=== PATIENT | female | born 1960 | race Caucasian/White ===

== ENCOUNTER → 2018-07-09 13:40 | Outpatient (CLI) | payer MEDICAID, SELFPAY ==
--- NOTE | 2018-07-09 13:47 | US_ITS ---
US abdomen limited History:Soft tissue mass right upper quadrant tender Ordering Physician:Cleve Sawyer MD Patient Age: 58 years Comparison:None Findings: Ultrasound performed of the right upper quadrant over the palpable abnormality. In this region there is an oval 1 x 1.4 cm area of isoechogenicity which is well-circumscribed consistent with a lipoma. No cysts or suspicious solid lesions evident. IMPRESSION: Palpable abnormality in right upper quadrant appears to represent a small lipoma
== END ==
PROVIDERS: PCP Internal Medicine Adolescent Medicine; Visit Provider Internal Medicine Adolescent Medicine
DX: R19.01 Right upper quadrant abdominal swelling, mass and lump (principal)
CPT/HCPCS: 76705

== ENCOUNTER → 2018-07-21 08:20 | Outpatient (CLI) | payer MEDICAID, SELFPAY ==
--- NOTE | 2018-07-21 08:23 | MM_ITS ---
MM Dig screening mamm BI w/CAD ORDERING PHYSICIAN : Cleve Sawyer MD PATIENT AGE: 58 years GENDER: Female COMPARISON: July 2017, 2015, 2014 and June 2014 . May 2012 INDICATION: ITS.REASON: SCREENING 58-year-old. Routine screening. Patient Takes estrogen. No new complaints. Noncontributory family history. TECHNIQUE: Standard CC and MLO images were obtained. R2 CAD reviewed. Additional nipple profile MLO views bilaterally included FINDINGS: Lower density breast with generalized fatty replacement.. Stable mild asymmetry with no suspicious/ dominant mass. No suspicious calcifications. RIGHT BREAST. Stable appearance. Follow-up in one year adequate :Mild asymmetric area of fibroglandular density at the right breast again noted-unchanged. The 2 small nodular densities at the right breast appears stable. Stable dense spherical calcified areas right breast unchanged.. LEFT BREAST:No new findings. Follow-up in one year. Stable small benign 5 mm nodular density at the left breast no significant change since since 2013. This density dates back to at least 2011 but can be followed IMPRESSION: . Stable mammogram with no no findings of significant concern. Stable mild asymmetry. Stable nodular densities bilaterally. Follow-up in one year recommended BI-RADS Category: 2 Benign Finding(s) RECOMMENDED FOLLOW-UP: 1YR 1 YEAR FOLLOW-UP (A letter has been sent to the patient regarding results of the study.)
--- NOTE | 2018-07-21 08:23 | XR_ITS ---
XR DEXA axial skeleton HISTORY: ITS.REASON: ASYMPTOMATIC MENOPAUSAL ORDERING PHYSICIAN: Cleve Sawyer MD PATIENT AGE: 58 years COMPARISON: 07/19/2016 FINDINGS: The BMD measured at the left femoral neck is 1.143 g/cm squared with a T score of 0.8. This is considered Normal according to the World Health Organization criteria. Fracture risk is Low. Treatment is advised. L1 L4 density has a T score of 2.2. Bone density is not significant changed compared to the previous exam IMPRESSION: Normal bone density with low fracture risk. Recommend follow-up exam July 2020
== END ==
PROVIDERS: Family Provider Internal Medicine Adolescent Medicine; PCP Internal Medicine Adolescent Medicine; Visit Provider Internal Medicine Adolescent Medicine
DX: Z12.31 Encounter for screening mammogram for malignant neoplasm of breast (principal); Z78.0 Asymptomatic menopausal state
CPT/HCPCS: 77067; 77080

== ENCOUNTER → 2019-08-15 10:49 | Outpatient (CLI) | payer OTHER, SELFPAY ==
--- NOTE | 2019-08-15 11:36 | XR_ITS ---
PROCEDURE: XR SHOULDER RT MIN 2V Patient Age:59Y CLINICAL INDICATION: IMPINGEMENT SYNDROME OF RIGHT SHOULDER Right shoulder pain after moving furniture COMPARISON: No exams were available for comparison FINDINGS: The glenohumeral joint intact. No fracture no dislocation. There stippled calcification overlying above the greater tuberosity in the region of the critical zone rotator cuff-just inferior to the tip of the acromion. This would appear to reflect calcific tendinitis features. AC joint intact. Minor hypertrophic changes inferiorly at distal clavicle The apices of the lungs is clear bilaterally. Incidental note is made of just roughly 2 cm length cervical rib on right which is slightly more evident than cervical rib on left IMPRESSION: Calcific tendinitis calcifications noted-just superior to the greater tuberosity Dictated by: Michele Del Real MD 08/15/2019 14:30 Electronically signed by Michele Del Real MD in [place] 08/15/2019 14:30
== END ==
PROVIDERS: PCP Internal Medicine Adolescent Medicine; Referring Provider Nurse Practitioner Family; Visit Provider Internal Medicine Adolescent Medicine
DX: M75.41 Impingement syndrome of right shoulder (principal)
CPT/HCPCS: 73030

== ENCOUNTER → 2019-08-28 07:46 | Outpatient (CLI) | payer OTHER, SELFPAY ==
--- NOTE | 2019-08-28 07:48 | MM_ITS ---
PROCEDURE: MM DIG SCREENING MAMM BI W/CAD CLINICAL INDICATION: SCREENING There is no personal or family history of breast cancer. COMPARISON: [facility] DIG MAMM-SCREEN DIAMOND from 07/19/2016 [facility] DIG MAMM-SCREEN DIAMOND W/CAD from 07/22/2017 [facility] MM Dig screening mamm BI w/CAD from 07/21/2018 TECHNIQUE: Standard CC and MLO images were obtained. R2 CAD reviewed. FINDINGS: The breasts are composed primarily of fat with minimal fibroglandular densities in the central portions bilaterally. There is stable benign-appearing macrocalcifications right breast. There are 2 stable small benign-appearing nodular densities right breast and a single benign-appearing nodular density left breast which is stable. There is faint arterial calcification in each breast. There is no suspicious lesion and no suspicious microcalcifications. IMPRESSION: Fatty type breast parenchyma with no suspicious lesions seen BI-RAD Category: 2 Benign Finding(s) FOLLOW-UP: 1YR 1 Year Follow-up (A letter has been sent to the patient regarding results of the study.) Dictated by: Dr. Dillon Head MD 08/28/2019 20:[address] Dillon Head MD in [place] 08/28/2019 20:23
== END ==
PROVIDERS: PCP Internal Medicine Adolescent Medicine; Visit Provider Nurse Practitioner Family
DX: Z12.31 Encounter for screening mammogram for malignant neoplasm of breast (principal)
CPT/HCPCS: 77067

== ENCOUNTER 2019-09-24 07:30 | Outpatient (RCR) | payer OTHER, SELFPAY ==
--- NOTE | 2019-08-25 09:19 | HMH.OTOPEV ---
OT Inpatient Evaluation Rehab OT Outpatient Eval Start: 08/25/19 09:05 Freq: Status: Active Protocol: Document 08/25/19 09:05 TFRY (Rec: 08/25/19 09:18 TFRY [id number]) Electronically Signed By Sultana Goldman OT 08/25/19 09:05 Outpatient Therapy Subjective History Subjective History This is a 59 year old right handed female referred to occupational therapy for impingement sydrome of right shoulder. Patient states that her shoulder has been hurting for the 1-2 weeks. The only thing she can recall doing is lifting something heavy. Chief Complaint Pain Symptom Type Ache,Throb,Sharp,Dull,Stabbing Symptoms Relieved By Rest/Positioning,Ice Symptoms Aggravated By Physical Activity Prior Functional Limitations None Current Functional Limitations Reaching,Lifting,Housework, Dressing,Sleeping Symptom Description Activity Dependent Level of pain today (0-10) 2 Pain scale - at its best (0-10) 0 Pain scale - at its worst (0-10) 10 Shoulder/Elbow Eval Shoulder Objective Measurements Palpation Tenderness tenderness over the bicipital tendon right shoulder exam standard Shoulder Palpation Findings Tenderness Shoulder ROM Right Shoulder ROM Limitations Pain Shoulder Abduction Active Range of 115 Motion (degrees) Shoulder Abduction Passive Range of 140 Motion (degrees) Shoulder Flexion Active Range of Motion 120 (degrees) Query Text: Shoulder Flexion Passive Range of Motion 175 (degrees) Shoulder External Rotation Active Range WFL of Motion (degrees) Shoulder External Rotation Passive Range WFL of Motion (degrees) Shoulder Internal Rotation Active Range WFL of Motion (degrees) Shoulder Internal Rotation Passive Range WFL of Motion (degrees) pain with active ROM shoulder exam right standard pain with passive ROM shoulder exam right standard decreased ROM shoulder exam standard right Shoulder MMT Shoulder Abduction Strength Grade 3+ Fair+ Shoulder Extension Strength Grade 3+ Fair+ Shoulder Flexion Strength Grade 3+ Fair+ Shoulder Horizontal Abduction Strength 3+ Fair+ Grade Shoulder Horizontal Adduction Strength 3+ Fair+ Grade Shoulder External Rotation Strength 3+ Fair+ Grade Shoulder Internal Rotation Strength 3+ Fair+ Grade
--- NOTE | 2019-09-24 08:15 | HMH.RHREAS ---
Rehab Reassessment Rehab OP Re-assessment Start: 09/24/19 08:09 Freq: Status: Active Protocol: Document 09/24/19 08:09 TFRY (Rec: 09/24/19 08:14 TFRY [id number]) Electronically Signed By Sultana Goldman OT 09/24/19 08:09 Rehab Re-assessment Subjective Subjective it is feeling better. Objective Objective Notes Patient seen this date for skilled occupational therapy services. See exercise flow sheet for exercises. Reassessment of right shoulder AROM: flexion - 0-150; abduction - 0-150. Right shoulder strength: flexion - 4 -/5; abduction - 4-/5; int. rot. - 3+/4-/5; ext. rot. - 3+ /4-/5. Patient reports that she is able to do more with right shoulder with regard to ADL's and housework. Patient reports that pain is a 3 at worse in right shoulder. Assessment Progress Assessment Progressing as Expected Assessment Notes Patient making progress with improvement in ROM and strength. Patient goals met STG's - 710 LTG's - 04/15 Goals Not Met strength Plan Plan Continue occupational therapy working on unmet goals. Frequency of Therapy 2x per week Duration of therapy 4 weeks Time and Billing Re-Eval Time 5 Re-Eval Billing Units 0 PHYSICIAN CERTIFICATION: I certify the specified therapy services for Laure Cool are required, authorized, and reviewed every 30 days.
== END 2019-09-24 07:35 | disposition home or self-care (01) ==
LOC: OT 07:30
PROVIDERS: Visit Provider Nurse Practitioner Family
DX: M75.41 Impingement syndrome of right shoulder (principal)
CPT/HCPCS: 97014; 97110; 97164; 97165; G0283

== ENCOUNTER → 2020-03-29 10:37 | Outpatient (CLI) | payer OTHER, SELFPAY ==
[2020-03-29 11:17] LABS: Basophils # 0.1 K/mm3 (0-0.2); Basophils % 0.9 % (0.1-2.0); Eosinophils # 0.3 K/mm3 (0.0-0.4); Hematocrit 45.3 % (37.0-47.0); Lymphocytes # 3.2 K/mm3 (0.7-4.5); Lymphocytes % 39.1 % (10-50); Mean Corpuscular HGB Conc 33.1 g/dL (31.8-35.4); Mean Corpuscular Hemoglobin 29.7 pg (27.0-31.2); Mean Corpuscular Volume 89.8 fl (81-99); Mean Platelet Volume 7.9 fl (7.4-10.4); Monocytes # 0.3 K/mm3 (0.1-1.0); Neutrophils # 4.3 K/mm3 (1.8-7.8); Platelet Count 315 K/mm3 (142-424); Red Blood Count 5.05 M/mm3 (4.20-5.40); Red Cell Distribution Width 14.2 % (11.5-17.5); White Blood Count 8.2 K/mm3 (4.8-10.8)
[2020-03-29 11:45] LABS: Chloride 101 mmol/L (98-107)
[2020-03-29 11:46] LABS: Potassium 4.6 mmoL/L (3.5-5.1); Sodium 140 mmol/L (136-145)
[2020-03-29 11:48] LABS: Alanine Aminotransferase 53 U/L (12-78); Albumin Level 4.3 g/dl (3.5-5.0); Albumin/Globulin Ratio 1.3 (1.1-1.8); Alkaline Phosphatase 58 U/L (38-126); Anion Gap 15.6 mEq/L (5-15); Aspartate Amino Transferase 46 U/L (14-36); Bilirubin,Total 0.7 mg/dl (0.2-1.3); Blood Urea Nitrogen 11 mg/dl (7-17); Carbon Dioxide 28 mmol/L (22.0-30.0); Cholesterol 193 mg/dl (140-200); Estimated Glomerular Filt Rate 102 ml/min (>60); GFR (African American) 124 ML/MIN (>60); Globulin 3.2 g/dL (1.3-3.2); Total Protein,Serum 7.5 g/dl (6.3-8.2); Triglycerides 112 mg/dl (30-150); VLDL Cholesterol 22 mg/dL (0-40)
[2020-03-29 11:49] LABS: Calcium 9.6 mg/dl (8.4-10.2); Chol/HDL Ratio 2.2 (1-3.5); Glucose 95 mg/dl (74-100); HDL Cholesterol 88 mg/dl (40-60)
[2020-03-29 12:00] LABS: Direct LDL Cholesterol 90.29 mg/dL (100-129)
[2020-03-29 12:06] LABS: 25-OH Vitamin D, Total 45.3 ng/mL (30-100)
[2020-03-30 11:01] LABS: Vitamin B12 1523 pg/mL (232-1245)
== END ==
PROVIDERS: Visit Provider Nurse Practitioner Family
DX: E53.8 Deficiency of other specified B group vitamins (principal); E78.5 Hyperlipidemia, unspecified; E55.9 Vitamin D deficiency, unspecified
CPT/HCPCS: 36415; 80053; 80061; 82306; 82607; 85025

== ENCOUNTER → 2020-09-13 12:56 | Outpatient (CLI) | payer OTHER, SELFPAY ==
--- NOTE | 2020-09-13 12:58 | MM_ITS ---
PROCEDURE: MM DIG SCREENING MAMM BI W/CAD Referring Doctor: Cleve Sawyer Patient Age:60Y CLINICAL INDICATION: SCREENING 60-year-old no hormones no new complaints noncontributory family history COMPARISON: MG [facility] DIG MAMM-SCREEN DIAMOND from 06/14/2014 MG [facility] DIG MAMM-SCREEN DIAMOND from 07/07/2015 MG [facility] DIG MAMM-SCREEN DIAMOND from 07/19/2016 MG [facility] DIG MAMM-SCREEN DIAMOND W/CAD from 07/22/2017 [facility] MM Dig screening mamm BI w/CAD from 07/21/2018 MG MM DIG SCREENING MAMM BI W/CAD from 08/28/2019 TECHNIQUE: Standard CC and MLO images were obtained. R2 CAD reviewed. Bilateral digital breast tomosynthesis included. The the FINDINGS: Minimal residual fibroglandular elements bilaterally with moderate fatty replacement and stable mild asymmetry. No new dominant or suspicious mass but no suspicious calcifications Right breast. No new areas of concern [place] of asymmetric fibroglandular tissue is longstanding stable feature. 2 small stable benign-appearing nodular densities most likely intramammary lymph nodes with no significant change dating back 2013 Left breast: Stable. No new areas of concern Stable small nodular intramammary nodes lateral left breast-stable on CC views dating back to 2013 IMPRESSION: Stable bilateral mammogram. No areas of concern Longstanding stable benign densities bilaterally Bilateral follow-up in 1 year recommended BI-RAD Category: 2 Benign Finding(s) FOLLOW-UP: 1YR 1 Year Follow-up (A letter has been sent to the patient regarding results of the study.) Dictated by: Michele Del Real MD 09/14/2020 08:26 Michele Del Real MD in [place] 09/14/2020 08:26
== END ==
PROVIDERS: PCP Internal Medicine Adolescent Medicine; Visit Provider Internal Medicine Adolescent Medicine
DX: Z12.31 Encounter for screening mammogram for malignant neoplasm of breast (principal)
CPT/HCPCS: 77063; 77067

== ENCOUNTER → 2020-10-28 09:09 | Outpatient (CLI) | payer OTHER, SELFPAY ==
[2020-10-28 10:56] LABS: Chloride 105 mmol/L (98-107); Potassium 4.6 mmoL/L (3.5-5.1); Sodium 139 mmol/L (136-145)
[2020-10-28 10:58] LABS: Alanine Aminotransferase 41 U/L (12-78); Alkaline Phosphatase 71 U/L (38-126); Aspartate Amino Transferase 38 U/L (14-36); Bilirubin,Total 0.6 mg/dl (0.2-1.3); Blood Urea Nitrogen 12 mg/dl (7-17); Estimated Glomerular Filt Rate 85 ml/min (>60); GFR (African American) 103 ML/MIN (>60)
[2020-10-28 10:59] LABS: Albumin Level 4.5 g/dl (3.5-5.0); Albumin/Globulin Ratio 1.3 (1.1-1.8); Anion Gap 10.6 mEq/L (5-15); Calcium 9.8 mg/dl (8.4-10.2); Carbon Dioxide 28 mmol/L (22.0-30.0); Chol/HDL Ratio 2.5 (1-3.5); Cholesterol 179 mg/dl (140-200); Globulin 3.5 g/dL (1.3-3.2); Glucose 113 mg/dl (74-100); HDL Cholesterol 73 mg/dl (40-60); Triglycerides 88 mg/dl (30-150); VLDL Cholesterol 18 mg/dL (0-40)
[2020-10-28 11:10] LABS: Direct LDL Cholesterol 75.77 mg/dL (100-129)
== END ==
PROVIDERS: Visit Provider Nurse Practitioner Family
DX: E78.5 Hyperlipidemia, unspecified (principal)
CPT/HCPCS: 36415; 80053; 80061

== ENCOUNTER → 2021-05-03 10:16 | Outpatient (CLI) | payer OTHER, SELFPAY ==
[2021-05-03 11:00] LABS: Basophils # 0.1 K/mm3 (0-0.2); Basophils % 1.1 % (0.1-2.0); Eosinophils # 0.3 K/mm3 (0.0-0.4); Eosinophils % 3.3 % (0.1-12.0); Hematocrit 44.3 % (37.0-47.0); Hemoglobin 14.6 g/dL (12.2-16.2); Lymphocytes # 3.3 K/mm3 (0.7-4.5); Lymphocytes % 42.4 % (10-50); Mean Corpuscular HGB Conc 32.9 g/dL (31.8-35.4); Mean Corpuscular Hemoglobin 28.9 pg (27.0-31.2); Mean Corpuscular Volume 87.7 fl (81-99); Mean Platelet Volume 8.1 fl (7.4-10.4); Monocytes # 0.5 K/mm3 (0.1-1.0); Monocytes % 6.2 % (1.7-9.3); Neutrophils # 3.6 K/mm3 (1.8-7.8); Platelet Count 294 K/mm3 (142-424); Red Blood Count 5.05 M/mm3 (4.20-5.40); White Blood Count 7.7 K/mm3 (4.8-10.8)
[2021-05-03 11:41] LABS: Alanine Aminotransferase 47 U/L (12-78); Albumin Level 4.3 g/dl (3.5-5.0); Albumin/Globulin Ratio 1.3 (1.1-1.8); Alkaline Phosphatase 65 U/L (38-126); Anion Gap 11.7 mEq/L (5-15); Aspartate Amino Transferase 41 U/L (14-36); Bilirubin,Total 0.5 mg/dl (0.2-1.3); Blood Urea Nitrogen 12 mg/dl (7-17); Calcium 9.3 mg/dl (8.4-10.2); Carbon Dioxide 31 mmol/L (22.0-30.0); Chloride 103 mmol/L (98-107); Chol/HDL Ratio 2.7 (1-3.5); Cholesterol 186 mg/dl (140-200); Estimated Glomerular Filt Rate 102 ml/min (>60); GFR (African American) 123 ML/MIN (>60); Globulin 3.3 g/dL (1.3-3.2); Glucose 97 mg/dl (74-100); HDL Cholesterol 69 mg/dl (40-60); Potassium 4.7 mmoL/L (3.5-5.1); Sodium 141 mmol/L (136-145); Total Protein,Serum 7.6 g/dl (6.3-8.2); Triglycerides 112 mg/dl (30-150); VLDL Cholesterol 22 mg/dL (0-40)
[2021-05-03 11:51] LABS: Direct LDL Cholesterol 87.59 mg/dL (100-129)
[2021-05-03 12:56] LABS: 25-OH Vitamin D, Total 53.7 ng/mL (30-100)
== END ==
PROVIDERS: Visit Provider Internal Medicine Adolescent Medicine
DX: R73.9 Hyperglycemia, unspecified (principal); E78.5 Hyperlipidemia, unspecified; E55.9 Vitamin D deficiency, unspecified
CPT/HCPCS: 36415; 80053; 80061; 82306; 83036; 85025

== ENCOUNTER → 2021-12-12 12:47 | Outpatient (CLI) | payer OTHER, SELFPAY ==
--- NOTE | 2021-12-12 12:51 | MM_ITS ---
PROCEDURE INFORMATION: Exam: MG Bilateral Screening 3D Mammography Exam date and time: 12/12/2021 12:51 PM Age: 61 years old Clinical indication: Encounter for screening mammogram for malignant neoplasm of breast. No family history of breast cancer. TECHNIQUE: Imaging protocol: Bilateral Screening tomosynthesis and 2D mammography including computer-aided detection (CAD) when performed. Limited right DBT. COMPARISON: FINDINGS: MAMMOGRAPHY: Breast composition: The breast tissue is composed of scattered areas of fibroglandular density. Mass: Stable scattered bilateral appearing sub cm circumscribed masses on both sides. No suspicious mass. Architectural distortion: None. Calcifications: No suspicious calcifications. Asymmetric density: None. Skin thickening: None. Axillary adenopathy: None. IMPRESSION: No mammographic evidence of malignancy. Annual screening is recommended unless otherwise clinically indicated. ASSESSMENT: BI-RADS Category 2: Benign
== END ==
PROVIDERS: PCP Internal Medicine Adolescent Medicine; Visit Provider Internal Medicine Adolescent Medicine
DX: Z12.31 Encounter for screening mammogram for malignant neoplasm of breast (principal)
CPT/HCPCS: 77063; 77067

== ENCOUNTER 2023-12-02 16:35 | Outpatient (CLI) | payer OTHER, SELFPAY ==
--- NOTE | 2023-12-02 16:39 | MM_ITS ---
PROCEDURE INFORMATION: Exam: MG Bilateral Screening 3D Mammography Exam date and time: 12/02/2023 4:30 PM Age: 63 years old Clinical indication: Screening examination TECHNIQUE: Imaging protocol: Bilateral Screening tomosynthesis and 2D mammography including computer-aided detection (CAD) when performed. COMPARISON: 1. MG MM DIG SCREENING MAMM BI W/CAD 12/12/2021 1:08 PM 2. MG MM DIG SCREENING MAMM BI W/CAD 09/13/2020 1:02 PM FINDINGS: MAMMOGRAPHY: Breast composition: There are scattered areas of fibroglandular density. Mass: No new or suspicious masses Architectural distortion: None. Calcifications: No suspicious calcifications. Asymmetric density: None. Skin thickening: None. Axillary adenopathy: None. IMPRESSION: No mammographic evidence of malignancy. Annual screening is recommended unless otherwise clinically indicated. ASSESSMENT: BI-RADS Category 1: Negative
== END 2023-12-02 23:59 ==
LOC: RAD 16:35
PROVIDERS: PCP Internal Medicine Adolescent Medicine; Visit Provider Internal Medicine Adolescent Medicine
DX: Z12.31 Encounter for screening mammogram for malignant neoplasm of breast (principal)
CPT/HCPCS: 77063; 77067

== ENCOUNTER 2024-12-21 14:46 | Outpatient (CLI) | payer OTHER, SELFPAY ==
--- NOTE | 2024-12-21 14:48 | MM_ITS ---
PROCEDURE INFORMATION: Exam: MG Bilateral Screening 3D Mammography Exam date and time: 12/21/2024 2:58 PM Age: 64 years old Clinical indication: Screening examination TECHNIQUE: Imaging protocol: Bilateral Screening tomosynthesis and 2D mammography including computer-aided detection (CAD) when performed. COMPARISON: 1. MG MM DIG SCREENING MAMM BI W/CAD 12/02/2023 4:30 PM 2. MG MM DIG SCREENING MAMM BI W/CAD 12/12/2021 1:08 PM FINDINGS: MAMMOGRAPHY: Breast composition: There are scattered areas of fibroglandular density. Mass: None. Architectural distortion: None. Calcifications: No suspicious calcifications. Asymmetric density: None. Skin thickening: None. Axillary adenopathy: None. IMPRESSION: No mammographic evidence of malignancy. Annual screening is recommended unless otherwise clinically indicated. ASSESSMENT: BI-RADS Category 1: Negative.
== END 2024-12-21 23:59 | disposition home or self-care (01) ==
LOC: RAD 14:46
PROVIDERS: PCP Internal Medicine Adolescent Medicine; Visit Provider Internal Medicine Adolescent Medicine
DX: Z12.31 Encounter for screening mammogram for malignant neoplasm of breast (principal)
CPT/HCPCS: 77063; 77067